=== PATIENT | male | born 1950 | race African-American/Black ===

== ENCOUNTER 2018-07-03 11:05 | Inpatient (IN) | payer OTHER ==
[2018-07-03 12:48] VITALS: BMI 20.9
--- NOTE | 2018-07-03 15:04 | HP ---
COWS - Scale Resting Pulse: 0= [place] 80 or Below Sweatin= No chills or Flushing Restless Observation: 0= Sits Still Pupil Size: 0= Normal to Room Light Bone or Joint Aches: 1= Mild Discomfort Runny Nose/ Eye Tearin= Runny Nose/Eyes GI Upset > 30mins: 2= Nausea/Diarrhea Tremor Observation: 2= Slight Tremor Visible Yawning Observation: 0= None (last use of heroin about 6 hours ago) Anxiety or Irritability: 2=Irritable/Anxious Goose Flesh Skin: 3=Piloerection COWS Score: 12 Admission ROS [facility] Chief Complaint: 67 yo old male with h/o asthma, here for detox from heroin- court compelled. 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 Went into methadone program in the [place] by court mandation, and self detoxed 2 months ago but urine was recently positive for opioids- pt was asked to come here for detox. Pt uses 3 bags every other day. Also uses cocaine 1/2 gram every other day. Has been using heroin for 2 years- since age 65. 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 Has used alcohol and cocaine socially for several years. First used heroin IV at age 17 and was not using heroin consistently Allergies/Adverse Reactions: Allergies Allergy/AdvReac Type Severity Reaction Status Date / Time No Known Allergies Allergy Verified 07/03/18 13:52 - Ebola screening Have you traveled outside of the country in the last 21 days: No Have you had contact with anyone from an Ebola affected area: No Have you been sick,other than usual withdrawal symptoms: No - Review of Systems Constitutional: No Symptoms Reported EENT: reports: No Symptoms Reported Respiratory: reports: No Symptoms reported Cardiac: reports: No Symptoms Reported GI: reports: No Symptoms Reported Musculoskeletal: reports: No Symptoms Reported Integumentary: reports: No Symptoms Reported Neuro: reports: No Symptoms reported Endocrine: reports: No Symptoms Reported Hematology: reports: No Symptoms Reported Psychiatric: reports: No Sypmtoms Reported Other Systems: Reviewed and Negative Patient History - Patient Medical History Hx Asthma: Yes Hx Chronic Obstructive Pulmonary Disease (COPD): No Hx Cardiac Disorders: No Hx Congestive Heart Failure: No Hx Hypertension: No Hx Hypercholesterolemia: No Hx Pacemaker: No HX Cerebrovascular Accident: No Hx Seizures: No Hx Dementia: No Hx Diabetes: No Hx Gastrointestinal Disorders: No Hx Liver Disease: No Hx Genitourinary Disorders: No Hx Sexually Transmitted Disorders: No Hx Renal Disease (ESRD): No Hx Thyroid Disease: No Hx Human Immunodeficiency Virus (HIV): No Hx Hepatitis C: No Hx Depression: No Hx Suicide Attempt: No Hx Schizophrenia: No - Patient Surgical History Past Surgical History: No Hx Neurologic Surgery: No Hx Cataract Extraction: No Hx Cardiac Surgery: No Hx Lung Surgery: No Hx Breast Surgery: No Hx Breast Biopsy: No Hx Abdominal Surgery: No Hx Appendectomy: No Hx Cholecystectomy: No Hx Genitourinary Surgery: No Hx Section: No Hx Orthopedic Surgery: No Anesthesia Reaction: No - PPD History Previous Implant?: Yes Documented Results: Negative w/o proof Implanted On Prior R Admission?: No - Reproductive History Patient is a Female of Child Bearing Age (11 -55 yrs old): No - Smoking Cessation Smoking history: Current some day smoker (occasional cigarette smoker) Have you smoked in the past 12 months: Yes Aproximately how many cigarettes per day: 3 Hx Chewing Tobacco Use: No Initiated information on smoking cessation: Yes 'Breaking Loose' booklet given: 07/03/18 - Substance & Tx. History Hx Alcohol Use: Yes (social drinker- beer ) Hx Substance Use: Yes (heroin injected at age 17- few months, now snorting heroin) Substance Use Type: Cocaine (snorting) Hx Substance Use Treatment: Yes (methadone) - Substances Abused Heroin Route: Inhalation Frequency: Daily Amount used: 3 bags Age of first use: 27 Date of Last Use: 07/03/18 Cocaine Route: Inhalation Frequency: 3-6 times per week Amount used: $70 Age of first use: 33 Date of Last Use: 07/02/18 Family Disease History - Family Disease History Family Disease History: Diabetes: Grandparent, Father, Brother, Sister Admission Physical Exam BHS - Vital Signs Vital Signs: Vital Signs - 24 hr 07/03/18 12:46 Temperature 97 F L Pulse Rate 64 Respiratory 18 Rate Blood Pressure 132/68 - Physical General Appearance: Yes: Within Normal Limits HEENTM: Yes: Within Normal Limits, EOMI, YOLA (pinpoint pupils, right nasal septum with perforation- uses cocaine and heroin intransally) Respiratory: Yes: Within Normal Limits, Normal Breath Sounds (occ wheezes- insp and exp) Neck: Yes: Within Normal Limits Cardiology: Yes: Within Normal Limits Genitourinary: Yes: Within Normal Limits Back: Yes: Within Normal Limits Musculoskeletal: Yes: Within Normal Limits Extremities: Yes: Within Normal Limits Neurological: Yes: Within Normal Limits Integumentary: Yes: Within Normal Limits Lymphatic: Yes: Within Normal Limits - Diagnostic (1) Opioid use disorder Current Visit: Yes Status: Acute (2) Cocaine use disorder Current Visit: Yes Status: Acute (3) Asthma Current Visit: Yes Status: Acute Cleared for Admission BHS - Detox or Rehab Detox Regimen/Protocol: Methadone BHS Breath Alcohol Content Breath Alcohol Content: 0 Urine Drug Screen - Results Drug Screen Negative: No Urine Drug Screen Results: PEMA-Cocaine, OPI-Opiates, OXY-Oxycodone, FEN-Fentanyl
[2018-07-03] MEDS ORDERED: P-EPHED 60MG/TRIPROLIDI 2.5MG TABLET PO PRN (15:36)
[2018-07-03] MEDS ORDERED: LOPERAMIDE HCL 2 MG CAPSULE PO PRN (15:36)
[2018-07-03] MEDS ORDERED: ACETAMINOPHEN 325 MG TABLET (FP) PO PRN (15:36)
[2018-07-03] MEDS ORDERED: MAGNESIUM CITRATE 300 ML BOTTLE PO PRN (15:36)
[2018-07-03] MEDS ORDERED: MENTHOL/PHENOL 1 EACH UD MM PRN (15:36)
[2018-07-03] MEDS ORDERED: guaiFENesin/D-METHORPHAN HB 10 ML UNIT-DOSE CUPS PO PRN (15:36)
[2018-07-03] MEDS ORDERED: MAGNESIUM HYDROX 2400MG/30ML ORAL SUSPENSION 30 ML CUP PO PRN (15:36)
[2018-07-03] MEDS ORDERED: IBUPROFEN 400 MG TABLET (FP) PO PRN (15:36)
[2018-07-03] MEDS ORDERED: MAG HYDROX/AL HYDROX/SIMETH 30 ML UNIT-DOSE CUP PO PRN (15:36)
[2018-07-03] MEDS ORDERED: METHADONE HCL 10 MG TABLET (FOR DETOX USE ONLY) PO ONE ×2 (16:15→23:00)
[2018-07-03] MEDS: diazePAM 5 MG TABLET PO PRN (17:14)
[2018-07-03] MEDS ORDERED: MELATONIN 5 MG TABLETS PO PRN (22:00)
[2018-07-03] MEDS: THIAMINE HCL 100 MG TABLET (FP) PO SCH (22:16)
[2018-07-03] MEDS: BUDESONIDE/FORMETEROL FUMARATE 160/4.5 mcg INHALER IH SCH ×2 (22:59→23:04)
[2018-07-04 01:35] LABS: URINE APPEARANCE CLEAR; URINE BILIRUBIN NEGATIVE (<2.0 mg/dL); URINE COLOR STRAW; URINE GLUCOSE (UA) NEGATIVE (NEGATIVE); URINE KETONE NEGATIVE (NEGATIVE); URINE LEUK ESTERASE NEGATIVE (NEGATIVE); URINE NITRITE NEGATIVE (NEGATIVE); URINE PROTEIN NEGATIVE (NEGATIVE); URINE UROBILINOGEN NEGATIVE mg/dL (0.2-1.0)
[2018-07-04] MEDS ORDERED: METHADONE HCL 10 MG TABLET (FOR DETOX USE ONLY) PO ONE (10:00)
[2018-07-04] MEDS: diazePAM 5 MG TABLET PO PRN ×2 (10:16→22:38)
[2018-07-04] MEDS: NICOTINE 7 MG/24 HOURS TOPICAL PATCH TD SCH (10:16)
[2018-07-04] MEDS: PRENATAL VITAMINS W/ FOLIC ACID TABLET (FP) PO SCH (10:16)
[2018-07-04] MEDS: BUDESONIDE/FORMETEROL FUMARATE 160/4.5 mcg INHALER IH SCH ×2 (10:16→22:37)
[2018-07-04 11:25] LABS: HEMATOCRIT 37.9 % (35.4-49); HEMOGLOBIN 11.9 GM/dL (11.7-16.9); MCH 29.6 pg (25.7-33.7); MCHC 31.4 g/dl (32.0-35.9); MEAN CELL VOLUME 94.3 fl (80-96); MEAN PLT VOLUME 7.6 fl (7.5-11.1); PLATELET COUNT 282 K/MM3 (134-434); RBC 4.02 M/mm3 (4.00-5.60); RDW 13.7 % (11.9-15.9); WHITE BLOOD COUNT 6.4 K/mm3 (4.0-10.0)
[2018-07-04 11:41] LABS: ALBUMIN 3.9 g/dl (3.4-5.0); ALK PHOS 89 U/L (45-117); ANION GAP 8 MMOL/L (8-16); BILIRUBIN,TOTAL 0.5 mg/dL (0.2-1); BLOOD UREA NITROGEN 13 mg/dL (7-18); CALCIUM 9.1 mg/dL (8.5-10.1); CHLORIDE 104 mmol/L (98-107); CO2 31 mmol/L (21-32); CREATININE 1.2 mg/dL (0.55-1.3); GLUCOSE,RANDOM 92 mg/dL (74-106); POTASSIUM 4.2 mmol/L (3.5-5.1); SGOT/AST 29 U/L (15-37); SGPT/ALT 18 U/L (13-61); SODIUM 142 mmol/L (136-145); TOT PROT 7.4 g/dl (6.4-8.2)
--- NOTE | 2018-07-04 11:57 | PN ---
BHS COWS - Scale Resting Pulse: 0= [place] 80 or Below Sweatin= Chills/Flushing Restless Observation: 0= Sits Still Pupil Size: 0= Normal to Room Light Bone or Joint Aches: 2= Severe Diffuse Aches Runny Nose/ Eye Tearin= None GI Upset > 30mins: 0= None Tremor Observation of Outstretched Hands: 2= Slight Tremor Visible Yawning Observation: 0= None Anxiety or Irritability: 2=Irritable/Anxious Goose Flesh Skin: 0=Smooth Skin COWS Score: 7 BHS Progress Note (SOAP) Subjective: PATIENT IRRITABLE, ANXIOUS. C/O CHILLS AND SHAKES. Objective: 07/04/18 11:55 Laboratory Tests 07/04/18 07/04/18 07/04/18 00:01 06:00 06:00 WBC 6.4 RBC 4.02 Hgb 11.9 Hct 37.9 MCV 94.3 MCH 29.6 MCHC 31.4 L RDW 13.7 Plt Count 282 MPV 7.6 Sodium 142 Potassium 4.2 Chloride 104 Carbon Dioxide 31 Anion Gap 8 BUN 13 Creatinine 1.2 Creat Clearance w eGFR > 60 Random Glucose 92 Calcium 9.1 Total Bilirubin 0.5 AST 29 ALT 18 Alkaline Phosphatase 89 Total Protein 7.4 Albumin 3.9 Urine Color Straw Urine Appearance Clear Urine pH 7.0 Ur Specific [place] 1.006 L Urine Protein Negative Urine Glucose (UA) Negative Urine Ketones Negative Urine Blood Negative Urine Nitrite Negative Urine Bilirubin Negative Urine Urobilinogen Negative Ur Leukocyte Esterase Negative Vital Signs Temperature 98.7 F 07/04/18 09:29 Pulse Rate 60 07/04/18 09:29 Respiratory Rate 16 07/04/18 09:29 Blood Pressure 130/85 07/04/18 09:29 O2 Sat by Pulse Oximetry (%) SKIN WARM AND DRY ALERT AND ORIENTED X 3 ANXIOUS AND IRRITABLE EXT MILD TREMORS VISIBLE, AMB AD EVANGELIST, FULL ROM Assessment: 07/04/18 11:56 WITHDRAWAL SX Plan: CONTINUE DETOX REGIMEN ENCOURAGE ORAL FLUIDS CONTINUE TO MONITOR CLINICALLY
[2018-07-04] MEDS: THIAMINE HCL 100 MG TABLET (FP) PO SCH (22:37)
[2018-07-04] MEDS: ALBUTEROL SO4 8 GM HFA INHALER IH PRN (22:38)
--- NOTE | 2018-07-05 09:51 | EKG ---
Test Reason : Blood Pressure : / mmHG Vent. Rate : 071 BPM Atrial Rate : 071 BPM P-R Int : 172 ms QRS Dur : 084 ms QT Int : 408 ms P-R-T Axes : 077 070 073 degrees QTc Int : 443 ms NORMAL SINUS RHYTHM NORMAL ECG NO PREVIOUS ECGS AVAILABLE Confirmed by HUMERA LAZO, GREGOR ([id number]) on 07/05/2018 9:51:13 AM Referred By: Confirmed By:GREGOR GRUBBS MD
[2018-07-05] MEDS ORDERED: METHADONE HCL 5 MG TABLET (FOR DETOX USE ONLY) PO ONE (10:00)
[2018-07-05] MEDS: PRENATAL VITAMINS W/ FOLIC ACID TABLET (FP) PO SCH (10:14)
[2018-07-05] MEDS: NICOTINE 7 MG/24 HOURS TOPICAL PATCH TD SCH (10:15)
[2018-07-05] MEDS: diazePAM 5 MG TABLET PO PRN ×2 (10:15→22:03)
[2018-07-05] MEDS: BUDESONIDE/FORMETEROL FUMARATE 160/4.5 mcg INHALER IH SCH ×2 (10:15→22:04)
[2018-07-05] MEDS: ALBUTEROL SO4 8 GM HFA INHALER IH PRN ×2 (10:15→22:06)
--- NOTE | 2018-07-05 11:27 | PN ---
BHS COWS - Scale Resting Pulse: 0= [place] 80 or Below Sweatin= No chills or Flushing Restless Observation: 0= Sits Still Pupil Size: 1= Pupils >than Normal Bone or Joint Aches: 2= Severe Diffuse Aches Runny Nose/ Eye Tearin= None GI Upset > 30mins: 0= None Tremor Observation of Outstretched Hands: 0= None Yawning Observation: 1= 1-2x During Session Anxiety or Irritability: 2=Irritable/Anxious Goose Flesh Skin: 0=Smooth Skin COWS Score: 6 BHS Progress Note (SOAP) Subjective: PATIENT C/O BODY ACHES, INTERMITTENT ANXIETY/IRRITABILITY. Objective: 07/05/18 11:24 Vital Signs Temperature 97.0 F L 07/05/18 10:00 Pulse Rate 62 07/05/18 10:00 Respiratory Rate 16 07/05/18 10:00 Blood Pressure 111/68 07/05/18 10:00 O2 Sat by Pulse Oximetry (%) Laboratory Tests 07/04/18 07/04/18 07/04/18 00:01 06:00 06:00 WBC 6.4 RBC 4.02 Hgb 11.9 Hct 37.9 MCV 94.3 MCH 29.6 MCHC 31.4 L RDW 13.7 Plt Count 282 MPV 7.6 Sodium 142 Potassium 4.2 Chloride 104 Carbon Dioxide 31 Anion Gap 8 BUN 13 Creatinine 1.2 Creat Clearance w eGFR > 60 Random Glucose 92 Calcium 9.1 Total Bilirubin 0.5 AST 29 ALT 18 Alkaline Phosphatase 89 Total Protein 7.4 Albumin 3.9 Urine Color Straw Urine Appearance Clear Urine pH 7.0 Ur Specific [place] 1.006 L Urine Protein Negative Urine Glucose (UA) Negative Urine Ketones Negative Urine Blood Negative Urine Nitrite Negative Urine Bilirubin Negative Urine Urobilinogen Negative Ur Leukocyte Esterase Negative RPR Titer 07/04/18 06:00 WBC RBC Hgb Hct MCV MCH MCHC RDW Plt Count MPV Sodium Potassium Chloride Carbon Dioxide Anion Gap BUN Creatinine Creat Clearance w eGFR Random Glucose Calcium Total Bilirubin AST ALT Alkaline Phosphatase Total Protein Albumin Urine Color Urine Appearance Urine pH Ur Specific [place] Urine Protein Urine Glucose (UA) Urine Ketones Urine Blood Urine Nitrite Urine Bilirubin Urine Urobilinogen Ur Leukocyte Esterase RPR Titer Nonreactive PE: ALERT AND ORIENTED X 3 SKIN WARM AND DRY CAR S1S2 RESP CTA BL EXT FULL ROM, NO EDEMA Assessment: 07/05/18 11:26 WITHDRAWAL SX Plan: CONTINUE DETOX REGIMEN ADD FLEXERIL PRN FOR BODY ACHES ENCOURAGE ORAL FLUIDS CONTINUE TO MONITOR CLINICALLY
[2018-07-05] MEDS: CYCLOBENZAPRINE HCL 5 MG TABLET PO SCH (22:04)
[2018-07-05] MEDS: THIAMINE HCL 100 MG TABLET (FP) PO SCH (22:05)
[2018-07-06] MEDS: CYCLOBENZAPRINE HCL 5 MG TABLET PO SCH ×3 (06:29→22:03)
[2018-07-06] MEDS ORDERED: METHADONE HCL 5 MG TABLET (FOR DETOX USE ONLY) PO ONE (10:00)
[2018-07-06] MEDS: NICOTINE 7 MG/24 HOURS TOPICAL PATCH TD SCH (10:46)
[2018-07-06] MEDS: PRENATAL VITAMINS W/ FOLIC ACID TABLET (FP) PO SCH (10:48)
[2018-07-06] MEDS: BUDESONIDE/FORMETEROL FUMARATE 160/4.5 mcg INHALER IH SCH ×2 (10:49→22:05)
[2018-07-06] MEDS: ALBUTEROL SO4 8 GM HFA INHALER IH PRN ×2 (10:49→22:04)
--- NOTE | 2018-07-06 13:48 | PN ---
BHS Progress Note (SOAP) Subjective: Sweating, interrupted sleep Objective: 07/06/18 13:47 Last Vital Signs Temp Pulse Resp BP Pulse Ox 96 F L 59 L 20 104/65 07/06/18 09:16 07/06/18 09:16 07/06/18 09:16 07/06/18 09:16 Laboratory Tests 07/04/18 07/04/18 07/04/18 00:01 06:00 06:00 WBC 6.4 RBC 4.02 Hgb 11.9 Hct 37.9 MCV 94.3 MCH 29.6 MCHC 31.4 L RDW 13.7 Plt Count 282 MPV 7.6 Sodium 142 Potassium 4.2 Chloride 104 Carbon Dioxide 31 Anion Gap 8 BUN 13 Creatinine 1.2 Creat Clearance w eGFR > 60 Random Glucose 92 Calcium 9.1 Total Bilirubin 0.5 AST 29 ALT 18 Alkaline Phosphatase 89 Total Protein 7.4 Albumin 3.9 Urine Color Straw Urine Appearance Clear Urine pH 7.0 Ur Specific [place] 1.006 L Urine Protein Negative Urine Glucose (UA) Negative Urine Ketones Negative Urine Blood Negative Urine Nitrite Negative Urine Bilirubin Negative Urine Urobilinogen Negative Ur Leukocyte Esterase Negative RPR Titer 07/04/18 06:00 WBC RBC Hgb Hct MCV MCH MCHC RDW Plt Count MPV Sodium Potassium Chloride Carbon Dioxide Anion Gap BUN Creatinine Creat Clearance w eGFR Random Glucose Calcium Total Bilirubin AST ALT Alkaline Phosphatase Total Protein Albumin Urine Color Urine Appearance Urine pH Ur Specific [place] Urine Protein Urine Glucose (UA) Urine Ketones Urine Blood Urine Nitrite Urine Bilirubin Urine Urobilinogen Ur Leukocyte Esterase RPR Titer Nonreactive Labs reviewed Assessment: 07/06/18 13:48 Withdrawal sxs Plan: Continue detox Encouraged PO water intake
[2018-07-06] MEDS: THIAMINE HCL 100 MG TABLET (FP) PO SCH (22:03)
[2018-07-07] MEDS: CYCLOBENZAPRINE HCL 5 MG TABLET PO SCH ×3 (07:33→22:07)
[2018-07-07] MEDS ORDERED: METHADONE HCL 10 MG TABLET (FOR DETOX USE ONLY) PO ONE (10:00)
[2018-07-07] MEDS: PRENATAL VITAMINS W/ FOLIC ACID TABLET (FP) PO SCH (10:28)
[2018-07-07] MEDS: BUDESONIDE/FORMETEROL FUMARATE 160/4.5 mcg INHALER IH SCH ×2 (10:29→22:08)
[2018-07-07] MEDS: ALBUTEROL SO4 8 GM HFA INHALER IH PRN ×2 (10:29→22:08)
[2018-07-07] MEDS: NICOTINE 7 MG/24 HOURS TOPICAL PATCH TD SCH (10:29)
--- NOTE | 2018-07-07 15:20 | PN ---
BHS Progress Note (SOAP) Subjective: Anxious, sweating Objective: 07/07/18 15:20 Last Vital Signs Temp Pulse Resp BP Pulse Ox 96.8 F L 61 18 102/65 07/07/18 09:00 07/07/18 09:00 07/07/18 09:00 07/07/18 09:00 Laboratory Tests 07/04/18 07/04/18 07/04/18 00:01 06:00 06:00 WBC 6.4 RBC 4.02 Hgb 11.9 Hct 37.9 MCV 94.3 MCH 29.6 MCHC 31.4 L RDW 13.7 Plt Count 282 MPV 7.6 Sodium 142 Potassium 4.2 Chloride 104 Carbon Dioxide 31 Anion Gap 8 BUN 13 Creatinine 1.2 Creat Clearance w eGFR > 60 Random Glucose 92 Calcium 9.1 Total Bilirubin 0.5 AST 29 ALT 18 Alkaline Phosphatase 89 Total Protein 7.4 Albumin 3.9 Urine Color Straw Urine Appearance Clear Urine pH 7.0 Ur Specific [place] 1.006 L Urine Protein Negative Urine Glucose (UA) Negative Urine Ketones Negative Urine Blood Negative Urine Nitrite Negative Urine Bilirubin Negative Urine Urobilinogen Negative Ur Leukocyte Esterase Negative RPR Titer 07/04/18 06:00 WBC RBC Hgb Hct MCV MCH MCHC RDW Plt Count MPV Sodium Potassium Chloride Carbon Dioxide Anion Gap BUN Creatinine Creat Clearance w eGFR Random Glucose Calcium Total Bilirubin AST ALT Alkaline Phosphatase Total Protein Albumin Urine Color Urine Appearance Urine pH Ur Specific [place] Urine Protein Urine Glucose (UA) Urine Ketones Urine Blood Urine Nitrite Urine Bilirubin Urine Urobilinogen Ur Leukocyte Esterase RPR Titer Nonreactive Labs reviewed Assessment: 07/07/18 15:22 Withdrawal sxs Plan: Continue detox Encouraged PO water intake
[2018-07-07] MEDS: THIAMINE HCL 100 MG TABLET (FP) PO SCH (22:08)
[2018-07-08] MEDS: CYCLOBENZAPRINE HCL 5 MG TABLET PO SCH (05:25)
[2018-07-08] MEDS ORDERED: METHADONE HCL 5 MG TABLET (FOR DETOX USE ONLY) PO ONE (06:00)
--- NOTE | 2018-07-08 08:40 | DS ---
[facility] Detox Discharge Summary Admission Date: 07/03/18 Discharge Date: 07/08/18 - History Present History: Opioid Dependence Additional Comments: Follow up with PCP 1-2 weeks. Pertinent Past History: Vital Signs Temperature 96.7 F L 07/08/18 10:53 Pulse Rate 65 07/08/18 10:53 Respiratory Rate 16 07/08/18 10:53 Blood Pressure 119/70 07/08/18 10:53 O2 Sat by Pulse Oximetry (%) Laboratory Last Values WBC 6.4 K/mm3 (4.0-10.0) 07/04/18 06:00 RBC 4.02 M/mm3 (4.00-5.60) 07/04/18 06:00 Hgb 11.9 GM/dL (11.7-16.9) 07/04/18 06:00 Hct 37.9 % (35.4-49) 07/04/18 06:00 MCV 94.3 fl (80-96) 07/04/18 06:00 MCH 29.6 pg (25.7-33.7) 07/04/18 06:00 MCHC 31.4 g/dl (32.0-35.9) L 07/04/18 06:00 RDW 13.7 % (11.9-15.9) 07/04/18 06:00 Plt Count 282 K/MM3 (134-434) 07/04/18 06:00 MPV 7.6 fl (7.5-11.1) 07/04/18 06:00 Sodium 142 mmol/L (136-145) 07/04/18 06:00 Potassium 4.2 mmol/L (3.5-5.1) 07/04/18 06:00 Chloride 104 mmol/L (98-107) 07/04/18 06:00 Carbon Dioxide 31 mmol/L (21-32) 07/04/18 06:00 Anion Gap 8 MMOL/L (8-16) 07/04/18 06:00 BUN 13 mg/dL (7-18) 07/04/18 06:00 Creatinine 1.2 mg/dL (0.55-1.3) 07/04/18 06:00 Creat Clearance w eGFR > 60 (>60) 07/04/18 06:00 Random Glucose 92 mg/dL (74-106) 07/04/18 06:00 Calcium 9.1 mg/dL (8.5-10.1) 07/04/18 06:00 Total Bilirubin 0.5 mg/dL (0.2-1) 07/04/18 06:00 AST 29 U/L (15-37) 07/04/18 06:00 ALT 18 U/L (13-61) 07/04/18 06:00 Alkaline Phosphatase 89 U/L (45-117) 07/04/18 06:00 Total Protein 7.4 g/dl (6.4-8.2) 07/04/18 06:00 Albumin 3.9 g/dl (3.4-5.0) 07/04/18 06:00 Urine Color Straw 07/04/18 00:01 Urine Appearance Clear 07/04/18 00:01 Urine pH 7.0 (5.0-8.0) 07/04/18 00:01 Ur Specific [place] 1.006 (1.010-1.035) L 07/04/18 00:01 Urine Protein Negative (NEGATIVE) 07/04/18 00:01 Urine Glucose (UA) Negative (NEGATIVE) 07/04/18 00:01 Urine Ketones Negative (NEGATIVE) 07/04/18 00:01 Urine Blood Negative (NEGATIVE) 07/04/18 00:01 Urine Nitrite Negative (NEGATIVE) 07/04/18 00:01 Urine Bilirubin Negative (<2.0 mg/dL) 07/04/18 00:01 Urine Urobilinogen Negative mg/dL (0.2-1.0) 07/04/18 00:01 Ur Leukocyte Esterase Negative (NEGATIVE) 07/04/18 00:01 RPR Titer Nonreactive (NONREACTIVE) 07/04/18 06:00 - Physical Exam Results Vital Signs: Vital Signs Temperature 96.9 F L 07/08/18 06:12 Pulse Rate 64 07/08/18 06:12 Respiratory Rate 16 07/08/18 06:12 Blood Pressure 105/60 07/08/18 06:12 O2 Sat by Pulse Oximetry (%) - Treatment Hospital Course: Detox Protocol Followed, Detoxed Safely, Responded well, Discharged Condition Good Patient has Accepted a Rehab Referral to: Patient refuse after care , listing out patient programs provided - Medication Discharge Medications: Ambulatory Orders Albuterol Sulfate Inhaler - [Ventolin Hfa Inhaler -] 2 inh PO Q4H PRN 07/03/18 Albuterol Sulfate Inhaler - [Ventolin HFA Inhaler -] 2 puff IH Q4H PRN #1 inhaler 07/08/18 Budesonide/Formeterol Fumarate [SYMBICORT 160/4.5mcg -] 2 puff IH BID #1 inhaler 07/08/18 - Diagnosis (1) Opioid dependence with withdrawal Current Visit: Yes Status: Acute (2) Asthma Current Visit: Yes Status: Chronic Qualifiers: Asthma severity: mild Asthma persistence: intermittent Asthma complication type: uncomplicated Qualified Code(s): J45.20 - Mild intermittent asthma, uncomplicated (3) Cocaine use disorder Current Visit: Yes Status: Chronic - AMA Did Patient Leave Against Medical Advice: No
[2018-07-08 10:54] VITALS: BP 119/70; PULSE 65; TEMP 96.7
== END 2018-07-08 11:33 | disposition home or self-care (01) | DRG 897 ==
LOC: YASAS 11:05 → Y3N 15:51
PROC: HZ2ZZZZ Detoxification Services for Substance Abuse Treatment (ICD-10-PCS; principal; 2018-07-03)
DX: F11.23 Opioid dependence with withdrawal (principal); F14.10 Cocaine abuse, uncomplicated; J45.20 Mild intermittent asthma, uncomplicated; Z72.0 Tobacco use
CPT/HCPCS: 36415; 80053; 81003; 85027; 86593; 93005; 93010